=== PATIENT | male | born 1990 | race African-American/Black ===

== ENCOUNTER 2020-08-19 10:31 | Outpatient (REF) | payer OTHER, SELFPAY ==
[2020-08-19 15:00] LABS: Syphilis Screen Nonreactive (Nonreactive)
[2020-08-20 04:31] LABS: HBsAGNum1 0.21 S/CO (0.00-0.99); Hepatitis B Surface Antigen Negative (Negative)
[2020-08-20 04:49] LABS: HBS Num1 0.48 mIU/mL (0-7.99); HBc Num1 0.06 S/CO (0.00-0.79); HIV AB/AG Nonreactive (Nonreactive); HIV Num 1 0.05 S/CO (0.00-0.99); Hepatitis B Core Antibody Nonreactive (Nonreactive); ~HepC Num1 0.09 S/CO (0.00-0.79); ~Hepatitis B Surface Antibody NONREACTIVE (Nonreactive); ~Hepatitis C Antibody Nonreactive (Nonreactive)
== END 2020-08-19 10:32 | disposition home or self-care (01) ==
LOC: HO.WFDLDS 10:31
PROVIDERS: Visit Provider Family Medicine
DX: Z01.84 Encounter for antibody response examination (principal); Z11.3 Encounter for screening for infections with a predominantly sexual mode of transmission; Z11.4 Encounter for screening for human immunodeficiency virus [HIV]
CPT/HCPCS: 36415; 86704; 86706; 86780; 86803; 87340; 87389

== ENCOUNTER 2020-09-11 13:52 | Outpatient (REF) | payer OTHER, SELFPAY ==
[2020-09-11 21:08] LABS: CT PCR NOT DETECTED (Not Detect.); NG PCR NOT DETECTED (Not Detect.)
== END 2020-09-11 13:53 | disposition home or self-care (01) ==
LOC: HO.LNP 13:52
PROVIDERS: Visit Provider Family Medicine
DX: Z11.3 Encounter for screening for infections with a predominantly sexual mode of transmission (principal)
CPT/HCPCS: 87491; 87591

== ENCOUNTER 2020-09-25 12:37 | Outpatient (REF) | payer OTHER, SELFPAY ==
[2020-09-25 14:28] LABS: Alanine Aminotransferase 17 U/L (0-40); Albumin Level 4.7 g/dL (3.5-5.0); Alkaline Phosphatase 53 U/L (39-117); Anion Gap 14 (12-20); Aspartate Amino Transferase 19 U/L (5-37); Bilirubin Total 1.1 mg/dL (0.0-1.0); Blood Urea Nitrogen 12 mg/dL (9-16); Calcium 9.7 mg/dL (8.4-10.2); Carbon Dioxide 26 mmol/L (22-29); Chloride 105 mmol/L (96-108); Cholesterol 176 mg/dL; Estimated Glomerular Filt Rate > 60; Glucose Fasting 87 mg/dL (60-99); HDL Cholesterol 50 mg/dL; LDL Cholesterol Calculated 117 mg/dl; Potassium 3.8 mmol/L (3.3-5.1); Sodium 141 mmol/L (135-145); Total Protein 7.6 g/dL (6.5-8.0); Triglycerides 46 mg/dL
[2020-09-25 14:40] LABS: TSH reflex Free T4 0.64 uIU/mL (0.32-4.0)
[2020-09-25 23:08] LABS: CT PCR NOT DETECTED (Not Detect.); NG PCR NOT DETECTED (Not Detect.)
== END 2020-09-25 12:38 | disposition home or self-care (01) ==
LOC: HO.WFDLDS 12:37
PROVIDERS: Visit Provider Family Medicine
DX: Z00.00 Encounter for general adult medical examination without abnormal findings (principal); Z11.3 Encounter for screening for infections with a predominantly sexual mode of transmission
CPT/HCPCS: 36415; 80053; 80061; 84443; 87491; 87591

== ENCOUNTER 2021-10-06 08:51 | Outpatient (REF) | payer OTHER, SELFPAY ==
[2021-10-06 11:31] LABS: Hematocrit 44.2 % (42.0-52.0); Hemoglobin 14.8 g/dl (14.0-18.0); Mean Corpuscular HGB Conc 33.5 g/dl (31.0-36.0); Mean Corpuscular Hemoglobin 30.6 pg (27.0-33.0); Mean Corpuscular Volume 91.3 fL (80.0-98.0); Mean Platelet Volume 10.7 fL (9.4-12.4); Platelet Count 244 X10*3/uL (160-400); Red Blood Count 4.84 X10*6/uL (4.60-5.80); Red Cell Distribution Width 12.6 % (11.0-16.0); White Blood Count 5.6 X10*3/uL (4.8-10.8)
[2021-10-06 11:53] LABS: Alanine Aminotransferase 19 U/L (0-40); Albumin Level 4.7 g/dL (3.5-5.0); Alkaline Phosphatase 49 U/L (39-117); Anion Gap 11 (12-20); Aspartate Amino Transferase 17 U/L (5-37); Bilirubin Total 0.5 mg/dL (0.0-1.0); Blood Urea Nitrogen 13 mg/dL (9-16); Calcium 9.4 mg/dL (8.4-10.2); Carbon Dioxide 27 mmol/L (22-29); Chloride 107 mmol/L (96-108); Cholesterol 196 mg/dL; Estimated Glomerular Filt Rate > 60; Glucose Fasting 103 mg/dL (60-99); HDL Cholesterol 54 mg/dL; LDL Cholesterol Calculated 133 mg/dl; Potassium 4.2 mmol/L (3.3-5.1); Sodium 141 mmol/L (135-145); Total Protein 7.4 g/dL (6.5-8.0); Triglycerides 47 mg/dL
[2021-10-06 12:16] LABS: TSH reflex Free T4 1.12 uIU/mL (0.32-4.0)
== END 2021-10-06 08:52 | disposition home or self-care (01) ==
LOC: HO.WFDLDS 08:51
PROVIDERS: Visit Provider Hospitalist
DX: Z00.00 Encounter for general adult medical examination without abnormal findings (principal)
CPT/HCPCS: 36415; 80053; 80061; 84443; 85027

== ENCOUNTER 2022-10-20 11:52 | Outpatient (AMB) | payer OTHER, SELFPAY ==
--- NOTE | 2022-10-20 12:21 | MHC.OFFWIV ---
Intake Vital Signs 10/20/22 12:44 BP 102/42 L Blood Pressure Location Lt brachial Position Sitting Pulse 79 Pulse Source Pulse Oximeter Temp 97.9 F Temp Source Temporal Artery Scan Pulse Oximetry (%) 99 Oxygen Delivery Method Room Air Intake Visit Reasons: EP sick note for work [phone] Patient Tobacco Use Status: Never used Tobacco Allergies No Known Allergies Allergy (Verified 10/06/21 08:26) HPI EP sick note for work [phone] HPI Details Patient is 32-year-old male who comes to the walk-in clinic reporting that he had been sick for the last few days with acute onset of nausea vomiting and diarrhea. He states that he missed work for 3 days due to this, and now his work requests a note to allow him back to work. 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 He states that symptoms had started soon after eating seafood that had been left warm for a questionable amount of time. He did not get a fever, and no blood in the stools. His symptoms resolved on their own, and he is no longer with any symptoms. He denies nausea vomiting or diarrhea, headache or dizziness, malaise or myalgias, fever or chills, abdominal pain, weakness, or other significant associated symptoms. No other underlying immuno compromising issues. Reviewed [facility] Surgical History History of wisdom tooth extraction Family History Mother No problems noted. Father No problems noted. 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 Cognitive needs: No Hearing needs: No Vision needs: No Review of Systems Const All systems reviewed & are unremarkable except as noted in HPI and below Physical Exam Vital Signs: Last Vital Signs Temp 97.9 F 10/20/22 12:44 Pulse 79 10/20/22 12:44 BP 102/42 L 10/20/22 12:44 Pulse Ox 99 10/20/22 12:44 Oxygen Delivery Method Room Air 10/20/22 12:44 Const General: cooperative, healthy appearing, comfortable, no acute distress, alert, awake, Physically active and well groomed; No anxious, diaphoretic, ill appearing, intoxicated appearing, poor hygiene or tired appearing Nutritional Appearance: average body habitus Orientation/consciousness: oriented to person Limitations: no limitations Resp Effort & Inspection: normal respiratory effort Cardio Rate: regular rate Rhythm: regular rhythm GI Inspection: Yes normal to inspection, No Abdominal wall edema, No distended, No incision and No Abdominal panniculus present Palpation (GI): Soft to palpation, not firm, nontender, no guarding, not rigid, No hepatosplenomegaly present and no masses Skin Other: Good color, warm and dry Neuro General: oriented to person Psych Appearance: grossly normal Mental Status: mental status grossly normal Speech and movement: Normal speech and movement present Affect: normal affect Attitude: cooperative Thought process: Normal thought process present Insight: Good insight present (Psych) Judgement: Good judgement present (Psych) Assessment & Plan Assessment & Plan (1) Viral gastroenteritis: Code(s): A08.4 - Viral intestinal infection, unspecified Plan: Patient with apparent resolved viral gastroenteritis, that included nausea vomiting and diarrhea for about 3 days. He had no fever chills, and reports no blood in the stool. He has no underlying GI issues or immuno compromising issues. No other known sick contacts reported. We discussed proper hand washing, and hydrating adequately. I gave him a work note allowing him to go back to work tomorrow, as symptoms have been resolved. Coding Level of Care Code Est Pt Level 3 (49117) Diagnoses Viral gastroenteritis A08.4
[2022-10-20 12:44] VITALS: BP 102/42; PULSE 79; TEMP 36.6; O2SAT 99
== END 2022-10-20 13:27 | disposition home or self-care (01) ==
PROVIDERS: PCP Family Medicine; Visit Provider Physician Assistant Medical
DX: A08.4 Viral intestinal infection, unspecified (principal)
CPT/HCPCS: 99213

== ENCOUNTER 2022-12-22 13:40 | Outpatient (AMB) | payer OTHER, SELFPAY ==
--- NOTE | 2022-12-22 13:44 | MHC.PC.OV ---
Vital Signs 12/22/22 13:46 Height 5 ft 8 in Weight 206 lb BMI 31.3 BP 108/66 Blood Pressure Location Rt brachial Position Sitting Respiration 13 Pulse 78 Pulse Source Pulse Oximeter Temp 97.6 F Temp Source Temporal Artery Scan Pulse Oximetry (%) 99 Oxygen Delivery Method Room Air Intake Visit Reasons: right pointer finger dark spot Intake Note: Patient states that it appeared on 12/08/22. Patient states it freaked him out and he would just like to make sure its normal. Senior Manager Mmcoe Required: No Accompanied by: Self / Same As Patient Allergies No Known Allergies Allergy (Verified 12/22/22 13:50) Tobacco use date assessed: 12/22/22 Dental Screening Dental Screen Date: 12/22/22 Did you have a dental visit in the last 12 months?: Yes Did you have a dental problem in the last 6 months where you did not have access to dental care?: No Was dental information given to patient?: Patient has dentist HPI right pointer finger dark spot HPI Details 32 y/o male presents today with complaints of a dark spot on his R pointer finger. Spot is not painful but they report it showed up out of nowhere at around 12/08/22. [facility] Medical History No pertinent past medical history Surgical History History of wisdom tooth extraction Family History Mother No problems noted. Father No problems noted. 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 Tom Daily, Elizabeth Busby, Pedro Pablo Cid and colleagues, with an educational valeria from [employer]. Review of Systems Const Denies chills, Denies fatigue, Denies fever(s), Denies headache(s) and Denies weakness ENT Denies dizziness and Denies headache(s) Card Denies dyspnea Resp Denies cough, Denies dyspnea, Denies wheezing and Denies other (shortness of breath) Musc Denies numbness and Denies tingling Neuro Denies dizziness, Denies headache(s), Denies numbness, Denies tingling and Denies weakness Psych Denies anxiety and Denies depression Endo Denies fatigue Aller/Immun Denies wheezing Physical exam (Primary Care) Vital Signs: Last Vital Signs Temp 97.6 F 12/22/22 13:46 Pulse 78 12/22/22 13:46 Resp 13 12/22/22 13:46 BP 108/66 12/22/22 13:46 Pulse Ox 99 12/22/22 13:46 Oxygen Delivery Method Room Air 12/22/22 13:46 BMI result Body Mass Index 31.3 Tobacco/Smoking Status: Tobacco use Status Tobacco use date assessed 12/22/22 12/22/22 13:51 Patient Tobacco Use Status Never used Tobacco 12/22/22 13:51 e-Cigarette/Vaping Use Never Used 12/22/22 13:51 Thrive Assessment: Date of Thrive Assessment Date Thrive assessed 10/06/21 12/22/22 13:51 Const General: well developed; No acute distress Nutritional Appearance: well nourished Orientation/consciousness: patient oriented x3 HENMT Head: Yes normocephalic and Yes atraumatic Eyes General: appearance normal, both eyes and all related structures Pupils: Equal, round and reactive pupils present EOM: EOMs intact bilaterally Resp Effort & Inspection: normal respiratory effort Neuro General: patient oriented x3 and gait normal Cranial nerves: Yes Equal, round and reactive pupils present Extrem Other: Neoplasm of skin of uncertain behavior, R distal phalanx Psych Affect: normal affect Assessment and Plan Assessment & Plan (1) Neoplasm of uncertain behavior of skin: Code(s): D48.5 - Neoplasm of uncertain behavior of skin Plan: Approximately?1?mm?dark/pigmented?lesion?at?lateral?aspect?of?distal?phalanx?of?right?2nd?finger Smooth?borders?and?regular?coloration. Possible?hematoma?but?can?not?rule?out?neoplasm?and?possible?melanoma. Referred?to?dermatology If?this?is?a?hematoma?and?it?resolves?before?his?dermatology?appointment,?he?can?cancel?the?appointment. Orders: Referrals Dermatology Referral D48.5 - Neoplasm of uncertain behavior of skin Coding Level of Care Code Est Pt Level 3 (98836) Diagnoses Neoplasm of uncertain behavior of skin D48.5
[2022-12-22 13:46] VITALS: BP 108/66; PULSE 78; RESP 13; TEMP 36.4; O2SAT 99; BMI 31.3
== END 2022-12-22 14:17 | disposition home or self-care (01) ==
PROVIDERS: PCP Family Medicine; Visit Provider Family Medicine
DX: D48.5 Neoplasm of uncertain behavior of skin (principal)
CPT/HCPCS: 99213